=== PATIENT | female | born 1970 | race Caucasian/White ===

== ENCOUNTER 2017-04-11 14:17 | Emergency (ER) | payer BC ==
[2017-04-11] MEDS ORDERED: NS 0.9% 1000 ML* 1,000 ML IV ONE (14:49)
[2017-04-11 15:10] LABS: Hematocrit 34 % (35-47); Hemoglobin 11.5 g/dl (12.0-16.0); Mean Corpuscular HGB Conc 34 g/dl (31-36); Mean Corpuscular Hemoglobin 30 pg (27-31); Mean Corpuscular Volume 88 fL (80-97); Mean Platelet Volume 7 um3 (7.4-10.4); Red Cell Distribution Width 14 % (10.5-15); White Blood Count 11.3 10^3/ul (3.5-10.8)
--- NOTE | 2017-04-11 15:24 | RAD ---
INDICATION: Chest pain COMPARISON: None TECHNIQUE: PA and lateral dual-energy views were obtained. FINDINGS: Bones/Soft Tissues: There are no acute bony findings. Cardiomediastinal: The cardiomediastinal silhouette is normal. Lungs: There are no infiltrates. Pleura: There are no pleural effusions. Other: None IMPRESSION: NORMAL CHEST.
[2017-04-11 15:31] LABS: ALT 13 U/L (7-52); AST 16 U/L (13-39); Albumin 3.9 g/dL (3.2-5.2); Alkaline Phosphatase 52 U/L (34-104); Anion Gap 7 mmol/L (2-11); BUN/Creatinine Ratio 16.9 (8-20); Blood Urea Nitrogen 12 mg/dL (6-24); C Reactive Protein 11.62 mg/L (< 5.00); CO2 Carbon Dioxide 23 mmol/L (22-32); Calcium 9.3 mg/dL (8.6-10.3); Chloride 105 mmol/L (101-111); EGFR Non-African American 88.6 (>60); Globulin 3.1 g/dL (2-4); Glucose 140 mg/dL (70-100); Potassium 3.4 mmol/L (3.5-5.0); Sodium 135 mmol/L (133-145)
[2017-04-11 16:15] LABS: Urine Bilirubin Negative (Negative); Urine Glucose Negative (Negative); Urine Nitrite Negative (Negative)
[2017-04-11] MEDS ORDERED: Potassium Chlor TAB* 20 MEQ TAB.ER PO ONE (16:20)
[2017-04-11 16:36] VITALS: BP 138/69
--- NOTE | 2017-04-13 06:07 | ED ---
Zully Good Edward, scribed for Edmond Moffett MD on 04/11/17 at 1444 . Respiratory - HPI Summary HPI Summary: 47 y/o female presents to the ED c/o cough starting 1 week ago referred to the ED by [facility]. The cough was dry at first and is now productive. Associated sx: chest tightness, rib pain and shoulder pain related to cough, subjective fever. Denies SOB. Pt was dx with bronchitis and given medications ( doxycycline, prednisone and albuterol). Pt c/o palpitations after taking these new medications. Pt believes it is caused by the doxycycline. - History of Current Complaint Chief Complaint: EDDysrhythmPalp Stated Complaint: POSS HEART MURMUR Time Seen by Provider: 04/11/17 14:27 Hx Obtained From: Patient Onset/Duration: Lasting Days, Still Present Timing: Intermittent Episodes Lasting: - Cough Pain Intensity: 0 Character: Cough (Productive), Cough (Nonproductive) Associated Signs and Symptoms: Chest Pain with Cough - rib pain, shoulder pain and chest tightness - Allergy/Home Medications Allergies/Adverse Reactions: Allergies Allergy/AdvReac Type Severity Reaction Status Date / Time No Known Allergies Allergy Verified 04/11/17 14:25 PMH/Surg Hx/FS Hx/Imm Hx Previously Healthy: No Endocrine/Hematology History: Denies: Hx Diabetes, Hx Thyroid Disease Cardiovascular History: Denies: Hx Hypertension Respiratory History: Denies: Hx Asthma, Hx Chronic Obstructive Pulmonary Disease (COPD) GI History: Denies: Hx Ulcer - Surgical History Surgery Procedure, Year, and Place: L4- L5 ruptured disc 06/20. Lt. shoulder surg 2000 Infectious Disease History: No Infectious Disease History: Denies: Hx Hepatitis, Hx Human Immunodeficiency Virus (HIV), Traveled Outside the [place] in Last 30 Days - Family History Known Family History: Positive: Other - Cancer - Social History Alcohol Use: Rare Hx Substance Use: No Substance Use Type: Reports: None Hx Tobacco Use: Yes Smoking Status (MU): Current Every Day Smoker Amount Used/How Often: > 1/2 ppd Review of Systems Positive: Fever - subjective Eyes: Negative ENT: Negative Positive: Palpitations, Chest Pain - with cough Positive: Cough. Negative: Shortness Of Breath Gastrointestinal: Negative Genitourinary: Negative Musculoskeletal: Other - Rib pain with cough Skin: Negative Neurological: Negative Psychological: Normal All Other Systems Reviewed And Are Negative: Yes Physical Exam - Summary Physical Exam Summary: VITAL SIGNS: Reviewed. GENERAL: ~Patient is a well-developed and nourished female who is lying comfortable in the stretcher. ~Patient is not in any acute respiratory distress. HEAD AND FACE: No signs of trauma. ~No ecchymosis, hematomas or skull depressions. No sinus tenderness. EYES: PERRLA, EOMI x 2, No injected conjunctiva, no nystagmus. EARS: Hearing grossly intact. Ear canals and tympanic membranes are within normal limits. MOUTH: Oropharynx within normal limits. NECK: Supple, trachea is midline, no adenopathy, no JVD, no carotid bruit, no c- spine tenderness, neck with full ROM. CHEST: Symmetric, no tenderness at palpation LUNGS: Clear to auscultation bilaterally. No wheezing or crackles. CVS: Regular rate and rhythm, S1 and S2 present, no murmurs or gallops appreciated. ABDOMEN: Soft, non-tender. No signs of distention. No rebound no guarding, and no masses palpated. Bowel sounds are normal. EXTREMITIES: FROM in all major joints, no edema, no cyanosis or clubbing. NEURO: Alert and oriented x 3. No acute neurological deficits. Speech is normal and follows commands. SKIN: Dry and warm Triage Information Reviewed: Yes Vital Signs On Initial Exam: Initial Vitals Temp Pulse Resp BP Pulse Ox 97.9 F 76 18 149/66 98 04/11/17 14:21 04/11/17 14:21 04/11/17 14:21 04/11/17 14:21 04/11/17 14:21 Vital Signs Reviewed: Yes Diagnostics - Vital Signs Vital Signs Temp Pulse Resp BP Pulse Ox 04/11/17 14:21 97.9 F 76 18 149/66 98 - Laboratory Result Diagrams: 04/11/17 15:00 04/11/17 15:00 Lab Statement: Any lab studies that have been ordered have been reviewed, and results considered in the medical decision making process. - Radiology CXR Xray Interpretation: No Acute Changes - NORMAL CHEST Radiology Interpretation Completed By: Radiologist - EKG 1 EKG Interpretation: EKG @ 15:39 - SR @ [address] ELEVATIONS. Re-Evaluation - Re-Evaluation 1 Re-Evaluation Time: 16:23 Comment: Discuss test results and plan of care Disposition - Course Assessment/Plan: 47 y/o female presents to the ED c/o cough starting 1 week ago referred to the ED by [facility]. The cough was dry at first and is now productive. Associated sx: chest tightness, rib pain and shoulder pain related to cough, subjective fever. Denies SOB. Pt was dx with bronchitis and given medications (doxycycline, prednisone and albuterol). Pt c/o palpitations after taking these new medications. Pt believes it is caused by the doxycycline. CXR SHOWS NORMAL CHEST. EKG @ 15:39 - SR @ [address] ELEVATIONS. Test results without any significant abnormalities, except WBC 11.3 , slight anemia, potassium 3.4 for which the pt was given potassium chloride. UA (-) UTI. CXR shows no acute pathology. I believe the pt has a viral cough and possible URI, which is possibly also viral. The pt was instructed to stop taking doxycycline which gave the pt palpitations, and the pt was given tessalon tablets for the cough. Pt will be d/c home with f/u with PCP. - Diagnoses Provider Diagnoses: Cough, URI (upper respiratory infection) Discharge - Discharge Plan Condition: Stable Disposition: HOME Prescriptions: Benzonatate CAP* [Tessalon 100 MG CAP*] 100 mg PO TID PRN #12 cap PRN Reason: Cough Promethazine W/Codeine [Promethazine/Codeine] 10 ml PO TID PRN #90 ml MDD 30 PRN Reason: Cough Patient Education Materials: Upper Respiratory Infection (ED) Referrals: Mary Cline MD [Primary Care Provider] - 3 Days (PLEASE F/U IN 2-3 DAYS ) The documentation as recorded by the Zully conner Edward accurately reflects the service I personally performed and the decisions made by me, Edmond Moffett MD.
== END 2017-04-11 16:37 | disposition home or self-care (01) ==
LOC: ED 14:17
DX: J06.9 Acute upper respiratory infection, unspecified (principal); R07.9 Chest pain, unspecified; R05 Cough; M25.519 Pain in unspecified shoulder; R07.81 Pleurodynia; R00.2 Palpitations
CPT/HCPCS: 36415; 71020; 80053; 81003; 83880; 84484; 84702; 85025; 86140; 93005; 99282; A9270-GY